=== PATIENT | female | born 1940 | race Caucasian/White ===

== ENCOUNTER → 2018-07-22 14:16 | Outpatient (CLI) | payer MEDICARE, SELFPAY ==
[2018-07-22 13:43] VITALS: BMI 25.7
[2018-07-22 15:58] LABS: Absolute Lymphocyte Count 1.83 X10^3/ul (0.83-4.51); Absolute Neutrophil Count 5.4 X10^3/uL (2.0-7.7); Basophil# 0.02 X10^3/uL; Basophil% 0.2 % (0-1); Eosinophil# 0.11 X10^3/uL; Eosinophils% 1.3 % (0-5); Hematocrit 41.4 % (37-47); Lymphocyte # 1.83 X10^3/ul (4.0); Lymphocyte % 21.6 % (19-41); Mean Corp Hgb Conc 33.8 g/gl (32-36); Mean Corpuscular Hgb 32.6 pg (27.0-32.0); Mean Corpuscular Volume 96.3 fL (81-99); Monocyte# 1.08 X10^3/uL; Monocyte% 12.7 % (0-10); Neutrophil # 5.41 X10^3/uL (2.7-7.7); Neutrophil % 63.8 % (47-70); Platelet Count 250 K/mm3 (150-450); RBC Distribution Width CV 13.4 % (11.6-14.6); White Blood Count 8.5 K/mm3 (4.4-11.0)
[2018-07-22 16:13] LABS: AST(SGOT) 16 U/L (15-37); Alanine Aminotransfer ALT/SGPT 14 U/L (13-56); Albumin, Serum 3.6 g/dL (3.2-5.0); Alkaline Phosphatase 79 U/L (45-117); Anion Gap 7 (5-15); BUN 11 mg/dL (7-18); Bilirubin, Direct 0.22 mg/dL (0.00-0.30); Calcium,Total 8.9 mg/dL (8.5-10.1); Chloride 104 mmol/L (98-107); Cholesterol 169 mg/dL (200); Creatinine, Serum 0.73 mg/dL (0.55-1.02); EST Glomerular Filtration Rate 82 mL/min (>60); Est Glom Filt Rate - Afr Amer 99 mL/min (>60); Globulin 4.1 g/dL (2.2-4.2); Glucose 113 mg/dL (74-106); High Density Lipoprotein 60 mg/dL; Magnesium 2.2 mg/dL (1.6-2.6); Potassium 3.9 mmol/L (3.5-5.1); Protein, Total 7.7 g/dL (6.4-8.2); Sodium Level 139 mmol/L (136-145); Thyroid Stim Hormone (TSH) 1.48 uIU/mL (0.358-3.74); Triglycerides 130 mg/dL; Very Low Density Lipoprotein 26 mg/dL (5-40)
[2018-07-22 17:01] LABS: POSITIVE COUNT NO; POSITIVE DIFFERENTIAL NO; POSITIVE MORPHOLOGY NO
== END ==
PROVIDERS: Family Provider Family Medicine; PCP Family Medicine; Referring Provider Internal Medicine Cardiovascular Disease; Visit Provider Internal Medicine Cardiovascular Disease
DX: E78.00 Pure hypercholesterolemia, unspecified (principal); I48.2 Chronic atrial fibrillation; I10 Essential (primary) hypertension
CPT/HCPCS: 36415; 80048; 80061; 80076; 83735; 84443; 85025

== ENCOUNTER → 2018-08-14 12:34 | Outpatient (CLI) | payer MEDICARE, SELFPAY ==
[2018-07-22 13:43] VITALS: BMI 25.7
--- NOTE | 2018-08-14 12:37 | ECHOD_ITS ---
Reason For Study: AARHYTHMIA Procedure This was a 2D Doppler, Color Flow transthoracic echocardiogram. Exam performed in department. Left Ventricle Normal LV size. Left ventricular systolic function is normal. The estimated ejection fraction is 60 %. Unable to assess diastolic dysfunction due to arrhythmia. No regional wall motion abnormalities noted. Right Ventricle Normal RV size. Normal systolic function. Atria The left atrium is moderately enlarged. Normal right atrium. Mitral Valve Bileaflet diffuse mitral valve thickening. Mild focal mitral valve calcification of the anterior leaflet. Mild (1+) eccentric mitral valve insufficiency. Tricuspid Valve Normal tricuspid valve. Mild to moderate (1-2+) tricuspid valve insufficiency. Pulmonary artery systolic pressure is 45 mmHg. Mild pulmonary hypertension. Aortic Valve Trisinus/trileaflet aortic valve. Mild focal aortic valve calcification. Mild (1+) aortic valve insufficiency. Pulmonic Valve Normal pulmonic valve. Great Vessels Normal aortic root. The pulmonary artery is normal size. Normal inferior vena cava. Pericardium/Pleural No pericardial effusion. MMode/2D Measurements & Calculations LVIDd: 3.0 cm IVSd: 0.94 cm Ao root diam: 3.4 cm LVIDs: 2.0 cm LVPWd: 0.90 cm RVDd: 2.8 cm FS: 33.0 % LAV(MOD-bp): 84.7 ml LVAd ap4: 17.3 cm2 SV(MOD-sp4): 25.7 ml LAV(MOD-bp) Indexed: 52.2 ml/m2 EDV(MOD-sp4): 41.7 ml LAV(MOD-sp2): 84.7 ml EDV(sp4-el): 43.1 ml LAV(MOD-sp4): 82.4 ml LVAs ap4: 10.1 cm2 ESV(MOD-sp4): 16.0 ml ESV(sp4-el): 16.2 ml EF(MOD-sp4): 61.7 % EF(sp4-el): 62.4 % SV(sp4-el): 26.9 ml LA A4 area: 25.5 cm2 LA dimension(2D): 4.2 cm RA A4 area: 16.2 cm2 Doppler Measurements & Calculations MV E max tarsha: 99.3 cm/sec Ao V2 max: 138.7 cm/sec LV V1 max: 64.4 cm/sec Ao max P.7 mmHg LV V1 max P.7 mmHg PA V2 max: 65.1 cm/sec TR max tarsha: 323.1 cm/sec TR max P.8 mmHg Interpretation Summary Normal LV size. Left ventricular systolic function is normal. The estimated ejection fraction is 60 %. Unable to assess diastolic dysfunction due to arrhythmia. The left atrium is moderately enlarged. Mild (1+) eccentric mitral valve insufficiency. Mild to moderate (1-2+) tricuspid valve insufficiency. Pulmonary artery systolic pressure is 45 mmHg. Mild pulmonary hypertension. Mild (1+) aortic valve insufficiency. Compared to prior study, there is no significant change. Ordering Physician: Armando Perales Referring Physician: ROSALEE JACOME Performed By: Gwendolyn Singh RDCS
== END ==
PROVIDERS: Family Provider Family Medicine; PCP Family Medicine; Referring Provider Internal Medicine Cardiovascular Disease; Visit Provider Internal Medicine Cardiovascular Disease
DX: Z98.890 Other specified postprocedural states (principal)
CPT/HCPCS: 93306

== ENCOUNTER → 2023-12-06 | Outpatient (CLI) | payer MEDICARE, SELFPAY ==
--- NOTE | 2023-12-06 11:56 | ECHOCS_ITS ---
Reason For Study: Afib/Flutter Procedure This was a 2D Doppler, Color Flow transthoracic echocardiogram. The study was technically difficult. Contrast injection was performed. Exam performed in department. Left Ventricle Normal LV size. Left ventricular systolic function is normal. The left ventricular ejection fraction is 65 %. No regional wall motion abnormalities noted. Right Ventricle Normal RV size. Normal systolic function. Atria The left atrium is moderately enlarged. The right atrium is mildly enlarged. Mitral Valve Bileaflet diffuse mitral valve thickening. Tricuspid Valve Normal tricuspid valve. Mild (1+) tricuspid valve insufficiency. Pulmonary artery systolic pressure is 46 mmHg. Aortic Valve Trisinus/trileaflet aortic valve. Pulmonic Valve Normal pulmonic valve. Great Vessels Normal aortic root. The pulmonary artery is normal size. Normal inferior vena cava. Pericardium/Pleural No pericardial effusion. Medication 22 gauge I.V. with prn adaptor inserted into right arm. Diluted definity 1.5ml given slow IV push to enhance endocardial definition. MMode/2D Measurements & Calculations LVIDd: 3.7 cm IVSd: 1.2 cm LVOT diam: 2.0 cm LVIDs: 2.6 cm LVPWd: 1.1 cm RVDd: 4.2 cm FS: 30.3 % LVOT area: 3.0 cm2 Ao root diam: 3.8 cm LAV(MOD-bp): 94.0 ml LA A4 area: 27.6 cm2 LA dimension: 4.7 cm LAV(MOD-bp) Indexed: 57.0 ml/m2 LAV(MOD-sp2): 85.4 ml LAV(MOD-sp4): 92.5 ml TAPSE: 1.5 cm RA A4 area: 24.5 cm2 Doppler Measurements & Calculations MV E max tarsha: 88.7 cm/sec MV V2 max: 103.3 cm/sec Ao V2 max: 144.4 cm/sec MV max P.3 mmHg Ao max P.4 mmHg MV V2 mean: 47.5 cm/sec Ao V2 mean: 100.7 cm/sec MV mean P.2 mmHg Ao mean P.6 mmHg MV V2 VTI: 19.4 cm Ao V2 VTI: 29.2 cm MVA(VTI): 2.0 cm2 AV (velocity ratio): 0.44 CECELIA(I,D): 1.3 cm2 CECELIA(V,D): 1.3 cm2 LV V1 max: 61.0 cm/sec MR max tarsha: 501.2 cm/sec SV(LVOT): 39.3 ml LV V1 max P.5 mmHg MR max P.5 mmHg LV V1 mean P.89 mmHg MR mean tarsha: 419.3 cm/sec LV V1 mean: 44.8 cm/sec MR mean P.7 mmHg LV V1 VTI: 13.0 cm MR VTI: 172.3 cm PA V2 max: 66.9 cm/sec TR max tarsha: 326.2 cm/sec PA max PG (full): 0.54 mmHg TR max P.6 mmHg ECHO/Echo Complete W/ Contrast Interpretation Summary Normal LV size. Left ventricular systolic function is normal. The left ventricular ejection fraction is 65 %. The left atrium is moderately enlarged. The right atrium is mildly enlarged. Pulmonary artery systolic pressure is 46 mmHg. Contrast injection was performed. Ordering Physician: Armando Perales Referring Physician: Armando Perales Performed By: Talon العلي RCS
== END | disposition home or self-care (01) ==
PROVIDERS: PCP Family Medicine; Referring Provider Internal Medicine Cardiovascular Disease; Visit Provider Internal Medicine Cardiovascular Disease
DX: I48.11 Longstanding persistent atrial fibrillation (principal)
CPT/HCPCS: 93306; Q9957; A4216; C8929

== ENCOUNTER → 2023-12-24 | Outpatient (CLI) | payer MEDICARE, SELFPAY ==
--- NOTE | 2023-12-24 14:13 | RAD_ITS ---
STUDY: X-RAY - PELVIS REASON FOR EXAM: Female, 83 years old. Pain. TECHNIQUE: One view of the pelvis was obtained on 2 images. COMPARISON: None. FINDINGS: Normal bowel gas pattern with air seen to the rectum. Phleboliths and marked vascular calcification. Osteopenia. Normal sacroiliac joints. Mild arthrosis of the symphysis pubis. Moderate to severe loss of articular cartilage of the right hip joint with subchondral cyst formation, minimal protrusio acetabuli and osteophyte formation. Mild loss of articular cartilage of the left hip superiorly with small subchondral cyst formation and sclerosis. 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 See discussion above. Electronically Signed: Brando Lewis MD at 15:35 EDT ,
[2023-12-24 17:55] LABS: Absolute Lymphocyte Count 1.98 X10^3/uL (0.83-4.51); Absolute Neutrophil Count 6.3 X10^3/uL (2.0-7.7); Basophil# 0.05 X10^3/uL; Basophil% 0.5 % (0-1); Eosinophil# 0.08 X10^3/uL; Eosinophils% 0.8 % (0-5); Hematocrit 39.3 % (37-47); Hemoglobin 12.6 g/dL (12.0-15.0); Lymphocyte # 1.98 X10^3/ul (0.83-4.51); Lymphocyte % 20.8 % (19-41); Mean Corp Hgb Conc 32.1 g/dL (32-36); Mean Corpuscular Hgb 28.5 pg (27.0-32.0); Mean Corpuscular Volume 88.9 fL (81-99); Mean Platelet Vol. 10.7 fl (6.2-12.0); Monocyte# 1.06 X10^3/uL; Monocyte% 11.1 % (0-10); NRBC Flagged by Analyzer 0 % (0-5); Neutrophil # 6.33 X10^3/uL (2.7-7.7); Neutrophil % 66.5 % (47-70); Platelet Count 353 K/mm3 (150-450); RBC Distribution Width CV 16.5 % (11.6-14.6); RBC Distribution Width SD 54.1 fl (35.1-43.9); Red Blood Count 4.42 M/mm3 (4.2-5.4); White Blood Count 9.5 K/mm3 (4.4-11.0)
[2023-12-24 18:18] LABS: Erythrocyte Sedimentation Rate 16 mm/hr (0-30)
[2023-12-24 18:34] LABS: ALB/GLOB Ratio 0.8 RATIO (0.9-2.4); AST(SGOT) 17 U/L (15-37); Alanine Aminotransfer ALT/SGPT 12 U/L (13-56); Albumin, Serum 3.6 g/dL (3.2-5.0); Alkaline Phosphatase 79 U/L (45-117); Anion Gap 10 (5-15); BUN 19 mg/dL (7-18); BUN/Creat Ratio 22.3 RATIO (10-20); CRP 8.01 mg/L (0.0-3.0); Calcium,Total 9.6 mg/dL (8.5-10.1); Chloride 101 mmol/L (98-107); Creatinine, Serum 0.85 mg/dL (0.55-1.02); EST Glomerular Filtration Rate 68 mL/min (>60); Est Glom Filt Rate - Afr Amer 82 mL/min (>60); Globulin 4.3 g/dL (2.2-4.2); Glucose 117 mg/dL (74-106); Protein, Total 7.9 g/dL (6.4-8.2); Rheumatoid Factor < 10.0 IU/mL (<15); Sodium Level 139 mmol/L (136-145)
[2023-12-24 18:56] LABS: Hepatitis B Surface Antibody Non-Reactive; Hepatitis B Surface Antigen Non-Reactive (Nonreactive); Hepatitis C Antibody Non-Reactive (Nonreactive)
[2023-12-26 14:10] LABS: ANTINUCLEAR ANTIBODIES DIRECT Negative (Negative)
[2023-12-26 16:10] LABS: CCP IgG Antibodies > 250 units (0-19)
== END | disposition home or self-care (01) ==
PROVIDERS: PCP Family Medicine; Referring Provider Internal Medicine Rheumatology; Visit Provider Internal Medicine Rheumatology
DX: M06.4 Inflammatory polyarthropathy (principal)
CPT/HCPCS: 36415; 72170; 80053; 85025; 85652; 86038; 86140; 86200; 86431; 86706; 86803; 87340

== ENCOUNTER → 2024-07-08 | Outpatient (CLI) | payer MEDICARE, SELFPAY ==
[2024-07-08 13:45] LABS: Pathologist Comment May follow
[2024-07-08 14:36] LABS: RBC /Synovial Fluid 0.048 10^6/uL (0); Synovial Fld Mononuclear WBC # 0.894 10^3/ul; Synovial Fld Polynuclear WBC # 0.503 10^3/uL
[2024-07-08 17:13] LABS: Pathologist Review Will follow
[2024-07-08 17:14] LABS: AUTO B FLUID DILUENT BKGD CT WBC <0.1 RBC <0.01 (W<.1,R<.01); Source- Body Fluid SYNOVIAL
[2024-07-08 17:15] LABS: Appearance /Synovial Fluid Cloudy (CLEAR); Color / Synovial Fluid Red (Pale Yellow)
[2024-07-08 17:25] LABS: Body Fluid QC Type(s) BF1Q, BF2Q
[2024-07-08 17:29] LABS: CRYSTALS, BODY FLUID NO CRYSTALS SEEN
[2024-07-08 18:06] LABS: Lymph 21 %; Monocyte /Synovial Fluid 69 %; Neutrophil 8 % (0-25); Other Cell /Synovial Fluid 1 %; Plasma Cell /Synovial Fluid 1 %
== END | disposition home or self-care (01) ==
LOC: LABSPEC 12:49
PROVIDERS: PCP Family Medicine; Referring Provider Internal Medicine Rheumatology; Visit Provider Internal Medicine Rheumatology
DX: M06.051 Rheumatoid arthritis without rheumatoid factor, right hip (principal); M25.551 Pain in right hip; M17.0 Bilateral primary osteoarthritis of knee; M16.0 Bilateral primary osteoarthritis of hip
CPT/HCPCS: 87070; 87075; 87205; 89050; 89051; 89060

== ENCOUNTER → 2024-11-02 | Outpatient (CLI) | payer MEDICARE, SELFPAY ==
[2024-11-02 17:39] LABS: RBC /Synovial Fluid 0.038 10^6/uL (0); Synovial Fld Mononuclear WBC # 0.422 10^3/ul; Synovial Fld Mononuclear WBC % 54.6 %; Synovial Fld Polynuclear WBC # 0.351 10^3/uL; Synovial Fld Polynuclear WBC % 45.4 %; Total Cell Count Synovial Fld 0.8790 10^3/uL (0.000-0.000); WBC / Synovial Fluid 0.7730 10^3/uL (0.000-0.002)
[2024-11-02 17:46] LABS: AUTO B FLUID DILUENT BKGD CT WBC <0.1 RBC <0.01 (W<.1,R<.01)
[2024-11-02 17:50] LABS: Source- Body Fluid SYNOVIAL
[2024-11-02 17:51] LABS: Color / Synovial Fluid Red (Pale Yellow)
[2024-11-02 17:52] LABS: Appearance /Synovial Fluid Turbid (CLEAR)
[2024-11-02 23:37] LABS: Monocyte /Synovial Fluid 9 %; Other Cell /Synovial Fluid 59 %
[2024-11-02 23:38] LABS: Body Fluid QC Type(s) BF1Q,BF2Q; CRYSTALS, BODY FLUID NO CRYSTALS SEEN
== END | disposition home or self-care (01) ==
LOC: LABSPEC 15:56
PROVIDERS: PCP Family Medicine; Referring Provider Internal Medicine Rheumatology; Visit Provider Internal Medicine Rheumatology
DX: M06.00 Rheumatoid arthritis without rheumatoid factor, unspecified site (principal); I48.20 Chronic atrial fibrillation, unspecified; M17.0 Bilateral primary osteoarthritis of knee; M25.551 Pain in right hip; I10 Essential (primary) hypertension; E78.5 Hyperlipidemia, unspecified; H93.13 Tinnitus, bilateral; M21.41 Flat foot [pes planus] (acquired), right foot; Z79.899 Other long term (current) drug therapy
CPT/HCPCS: 87070; 87075; 87205; 89050; 89051; 89060